=== PATIENT | female | born 1990 | race Caucasian/White ===

== ENCOUNTER 2016-10-24 00:08 | Emergency (ER) | payer SELFPAY ==
[2016-10-24] VITALS (11 sets, daily range): BP systolic 92–118; BP diastolic 51–76; PULSE 92–116; RESP 16–20; TEMP 99.3; O2SAT 96–100
[~2016-10-24] VITALS: Ht 154.9 cm; Wt 56.5 kg
[~2016-10-24 00:08] MED LIST: CLIN1CAP6 PO
[2016-10-24] MEDS ORDERED: MORPHINE SULFATE 4 MG/ML INJ IV PUSH ONE ×4 (00:45→09:30)
[2016-10-24] MEDS ORDERED: SODIUM CHLOR 0.9% 1000 ML INJ 1,000 ML IV ONE (00:45)
[2016-10-24] MEDS ORDERED: ONDANSETRON HCL 4 MG/2 ML VIAL IV PUSH ONE (00:45)
[2016-10-24 01:07] LABS: AUTOMATED NEUTROPHIL # 10.5 TH/MM3 (1.8-7.7); BASOPHIL # 0.1 TH/MM3 (0-0.2); BASOPHIL % 0.7 % (0.0-2.0); EOSINOPHIL % 0.1 % (0.0-4.0); HEMATOCRIT 39.3 % (35.0-46.0); LYMPH % 3.9 % (9.0-44.0); LYMPHOCYTE # 0.5 TH/MM3 (1.0-4.8); MEAN CELL VOLUME 93.2 FL (80.0-100.0); MEAN CORPUSCULAR HGB CONC 34.3 % (32.0-36.0); MONO % 4.4 % (0.0-8.0); NEUT % 90.9 % (16.0-70.0); PLATELET COUNT 265 TH/MM3 (150-450); RED BLOOD COUNT 4.22 MIL/MM3 (4.00-5.30); RED CELL DISTRIBUTION WIDTH 11.1 % (11.6-17.2); WHITE BLOOD COUNT 11.6 TH/MM3 (4.0-11.0)
[2016-10-24 01:20] LABS: HEMO FLAGS DIFF FINAL
[2016-10-24 01:23] LABS: POTASSIUM 3.7 MEQ/L (3.5-5.1)
[2016-10-24 01:26] LABS: BICARBONATE 21.5 MEQ/L (21.0-32.0)
[2016-10-24 03:06] LABS: BLOOD, URINE LARGE (NEG); GLUCOSE,URINE NEG (NEG); NITRITE,URINE NEG (NEG)
[2016-10-24 03:09] LABS: KETONE, URINE 80 OR GREATER mg/dL (NEG)
[2016-10-24 03:20] LABS: URINE COLOR YELLOW (YELLW/STRAW)
[2016-10-24 03:21] LABS: MUCUS URINE MANY /lpf (OCC); SQUAMOUS EPITHELIAL CELL URINE 0-5 /hpf (0-5); WBC, URINE 0-2 /hpf (0-5)
[2016-10-24 03:22] LABS: COMMENT (UR) CULT NOT INDICATED; CULTURE IF INDICATED CULT NOT INDICATED
--- NOTE | 2016-10-24 03:36 | RADHPO ---
EXAM DATE/TIME: 10/24/2016 02:36 [place] COMPARISON: No previous studies available for comparison. INDICATIONS : Bleeding and pain with . LAB(S): Beta-hC MEDICAL HISTORY : . SURGICAL HISTORY : Tympanostomy tubes. ENCOUNTER: Initial ACUITY: 1 day PAIN SCORE: 8/10 LOCATION: Bilateral pelvis MEASUREMENTS: UTERUS: 11.0 x 6.2 x 7.2 cm ENDOMETRIAL STRIPE: >20 mm RIGHT OVARY: 3.4 x 3.1 x 2.6 cm LEFT OVARY: 3.4 x 2.4 x 1.9 cm FREE FLUID: No CROWN RUMP LENGTH: Non visualized. = WKS DAYS FHR: Non visualized. BPM FINDINGS: The endometrial stripe appears thickened and inhomogeneous probably hemorrhage and/or retained produc ts of conception and there is no evidence for intrauterine . There is no free fluid. The adn exa is unremarkable. CONCLUSION: Intrauterine is not identified and findings most likely representing hemorrhage and/or samuel ined products of conception. David Andrew MD on October 24, 2016 at 3:32 Board Certified Radiologist. This report was verified electronically.
--- NOTE | 2016-10-24 04:04 | PD ---
HPI Chief Complaint: Related Problem Time Seen by Provider: 00:41 Travel History International Travel<30 days: No Contact w/Intl Traveler<30days: No Traveled to known affect area: No History of Present Illness HPI 26 year old female presents to the emergency department by private transportation the care of her mother for evaluation of pelvic pain with heavy vaginal bleeding. Patient states that she started noticing some spotting around 9 PM and then 945 past a large amount of blood with what looks like a fetus. She states she saw arms and legs and did not retain the product and flushed the product. Patient's had ongoing bleeding and pain 9/10 in intensity. Patient states last normal period was 3 months ago. Patient has had some intermittent spotting. She was not aware that she was . Patient denies any previous pregnancies. Ab1. Patient denies any previous abdominal surgery. Patient's had no shortness of breath sweats near syncope or syncope. Patient denies any chronic medical conditions or surgeries except myringotomy at age 1. PFSH Past Medical History Narrative Medical Myringotomy; alcohol use prescription Lortab abuse; nursing notes reviewed Medical History: Denies Significant Hx Hx Anticoagulant Therapy: No Cardiovascular Problems: No Cerebrovascular Accident: No Diabetes: No Diminished Hearing: No Respiratory: No Immunizations Current: Yes ?: LMP: 3 MONTHS AGO : 1 Past Surgical History Ear Surgery: Yes (tubes in ears at age 1) Hysterectomy: No Tympanostomy Tube: Yes (AGE 1) Social History Alcohol Use: Yes (OCC) Tobacco Use: No Substance Use: Yes (HISTORY OF LORTAB ADDICTION) Allergies-Medications (Allergen,Severity, Reaction): Coded Allergies: Amoxicillin (Verified Allergy, Severe, Rash, 10/24/16) Reported Meds & Prescriptions Reported Meds & Active Scripts Active No Active Prescriptions or Reported Medications Review of Systems Except as stated in HPI: all other systems reviewed are Neg General / Constitutional: No: Fever, Chills HENT: No: Congestion Cardiovascular: No: Chest Pain or Discomfort Respiratory: No: Shortness of Breath Gastrointestinal: Positive: Abdominal Pain, No: Nausea, Vomiting Genitourinary: Positive: Pelvic Pain, Vaginal Bleeding, No: Decreased Urinary Output Musculoskeletal: No: Myalgias, Arthralgias Skin: No Rash Neurologic: No: Weakness Psychiatric: No: Anxiety Hematologic/Lymphatic: No: Lymph Node Enlargement Physical Exam Narrative GENERAL: Well-developed well-nourished female in no acute distress no respiratory distress appears to be in some discomfort SKIN: Warm and dry. HEAD: Normocephalic. EYES: No scleral icterus. No injection or drainage. NECK: Supple, trachea midline. No JVD or lymphadenopathy. CARDIOVASCULAR: Regular rate and rhythm without murmurs, gallops, or rubs. RESPIRATORY: Breath sounds equal bilaterally. No accessory muscle use. GASTROINTESTINAL: Abdomen soft, mild suprapubic tenderness to palpation without guarding or rebound, nondistended. Pelvic exam: External exam with scant blood no induration no lesions; speculum exam fresh blood in the vaginal vault few clots retained membranes noted at the cervical os no other products noted MUSCULOSKELETAL: No cyanosis, or edema. BACK: Nontender without obvious deformity. No CVA tenderness. Data Data Last Documented VS Vital Signs Date Time Temp Pulse Resp B/P Pulse Ox O2 Delivery O2 Flow Rate FiO2 10/24/16 07:24 97 18 105/73 99 Room Air 10/24/16 04:25 99.3 Orders Beta Hcg (Quant/Titer) (10/24/16 00:41) Complete Blood Count With Diff (10/24/16 00:41) Basic Metabolic Panel (Bmp) (10/24/16 00:41) Complete Rh (10/24/16 00:41) Urinalysis - C+S If Indicated (10/24/16 00:41) Iv Access Insert/Monitor (10/24/16 00:41) Ed Urine Pregnancytest Poc (10/24/16 00:41) Sodium Chlor 0.9% 1000 Ml Inj (Ns 1000 M (10/24/16 00:45) Ondansetron Inj (Zofran Inj) (10/24/16 00:45) Morphine Inj (Morphine Inj) (10/24/16 00:45) Us Pelvis (Ques Pr/Ect)W Trans (10/24/16 ) Morphine Inj (Morphine Inj) (10/24/16 03:30) Morphine Inj (Morphine Inj) (10/24/16 07:30) Labs Laboratory Tests Test 10/24/16 10/24/16 00:50 02:50 White Blood Count 11.6 TH/MM3 Red Blood Count 4.22 MIL/MM3 Hemoglobin 13.5 GM/DL Hematocrit 39.3 % Mean Corpuscular Volume 93.2 FL Mean Corpuscular Hemoglobin 32.0 PG Mean Corpuscular Hemoglobin 34.3 % Concent Red Cell Distribution Width 11.1 % Platelet Count 265 TH/MM3 Mean Platelet Volume 7.1 FL Neutrophils (%) (Auto) 90.9 % Lymphocytes (%) (Auto) 3.9 % Monocytes (%) (Auto) 4.4 % Eosinophils (%) (Auto) 0.1 % Basophils (%) (Auto) 0.7 % Neutrophils # (Auto) 10.5 TH/MM3 Lymphocytes # (Auto) 0.5 TH/MM3 Monocytes # (Auto) 0.5 TH/MM3 Eosinophils # (Auto) 0.0 TH/MM3 Basophils # (Auto) 0.1 TH/MM3 CBC Comment DIFF FINAL Differential Comment Sodium Level 135 MEQ/L Potassium Level 3.7 MEQ/L Chloride Level 103 MEQ/L Carbon Dioxide Level 21.5 MEQ/L Anion Gap 11 MEQ/L Blood Urea Nitrogen 5 MG/DL Creatinine 0.49 MG/DL Estimat Glomerular Filtration 153 ML/MIN Rate Random Glucose 107 MG/DL Calcium Level 8.8 MG/DL Human Chorionic Gonadotropin, [address]117 MIU/ML Quant Blood Type O POSITIVE Rho(D) Type POSITIVE Urine Color YELLOW Urine Turbidity SLIGHT Urine pH 6.0 Urine Specific [place] 1.021 Urine Protein NEG mg/dL Urine Glucose (UA) NEG mg/dL Urine Ketones 80 OR GREATER mg/dL Urine Occult Blood LARGE Urine Nitrite NEG Urine Bilirubin NEG Urine Leukocyte Esterase NEG Urine RBC 25-49 /hpf Urine WBC 0-2 /hpf Urine Squamous Epithelial 0-5 /hpf Cells Urine Amorphous Sediment FEW Urine Mucus MANY /lpf Microscopic Urinalysis Comment CULT NOT INDICATED MDM Medical Decision Making Medical Screen Exam Complete: Yes Emergency Medical Condition: Yes Medical Record Reviewed: Yes Interpretation(s) Last Impressions Pelvis Ultrasound 10/24/16 0000 Signed Impressions: Service Date/Time: Monday, October 24, 2016 02:36 - CONCLUSION: Intrauterine is not identified and findings most likely representing hemorrhage and/or retained products of conception. 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 Call placed to OB ED recommends ongoing observation for another 2 hours and then reassessment if patient continues to have retained products recommends transfer to [facility] emergency department and per Dr. tinsley he patient in the ED EMS here to transport patient Physician Communication Physician Communication discussed with Dr Baker OB ED hospitalist --rec 2 hours of [facility] ED OBS if no pregress will accept for transfer to OB ED; @ 0615 --send to [facility] ED --will see in the ED; discussed with DR Baer --will see in ED [facility] and contact Dr Baker to [facility] ED Diagnosis Primary Impression: Incomplete Additional Impression: Retained products of conception, early Scripts No Active Prescriptions or Reported Meds Nancy Schafer MD Oct 24, 2016 04:04
--- NOTE | 2016-10-24 08:25 | PD ---
Physical Exam Date Seen by Provider: Oct 24, 2016 Time Seen by Provider: 08:22 Narrative The patient is a 26-year-old female who was initially evaluated at [facility] by Dr. Schafer and was noted to have retained products of conception. The patient states her last menstrual cycle was mid July, she occasionally is irregular, and did not know she was when she went to the emergency department last night. The patient was evaluated and noted to be , ultrasound was performed which revealed what appeared to be retained products of conception and/or hemorrhage. The patient states she did pass what appeared to be a fetus at home, however, continued to have lower abdominal pain and cramping with bleeding. The patient was then referred to [facility] to be evaluated by the OB hospitalist. Data Data Last Documented VS Vital Signs Date Time Temp Pulse Resp B/P Pulse Ox O2 Delivery O2 Flow Rate FiO2 10/24/16 08:14 95 20 104/60 98 Room Air 10/24/16 04:25 99.3 Orders Beta Hcg (Quant/Titer) (10/24/16 00:41) Complete Blood Count With Diff (10/24/16 00:41) Basic Metabolic Panel (Bmp) (10/24/16 00:41) Complete Rh (10/24/16 00:41) Urinalysis - C+S If Indicated (10/24/16 00:41) Iv Access Insert/Monitor (10/24/16 00:41) Ed Urine Pregnancytest Poc (10/24/16 00:41) Sodium Chlor 0.9% 1000 Ml Inj (Ns 1000 M (10/24/16 00:45) Ondansetron Inj (Zofran Inj) (10/24/16 00:45) Morphine Inj (Morphine Inj) (10/24/16 00:45) Us Pelvis (Ques Pr/Ect)W Trans (10/24/16 ) Morphine Inj (Morphine Inj) (10/24/16 03:30) Morphine Inj (Morphine Inj) (10/24/16 07:30) Morphine Inj (Morphine Inj) (10/24/16 09:30) Ketorolac Inj (Toradol Inj) (10/24/16 09:30) Labs Laboratory Tests Test 10/24/16 10/24/16 00:50 02:50 White Blood Count 11.6 TH/MM3 Red Blood Count 4.22 MIL/MM3 Hemoglobin 13.5 GM/DL Hematocrit 39.3 % Mean Corpuscular Volume 93.2 FL Mean Corpuscular Hemoglobin 32.0 PG Mean Corpuscular Hemoglobin 34.3 % Concent Red Cell Distribution Width 11.1 % Platelet Count 265 TH/MM3 Mean Platelet Volume 7.1 FL Neutrophils (%) (Auto) 90.9 % Lymphocytes (%) (Auto) 3.9 % Monocytes (%) (Auto) 4.4 % Eosinophils (%) (Auto) 0.1 % Basophils (%) (Auto) 0.7 % Neutrophils # (Auto) 10.5 TH/MM3 Lymphocytes # (Auto) 0.5 TH/MM3 Monocytes # (Auto) 0.5 TH/MM3 Eosinophils # (Auto) 0.0 TH/MM3 Basophils # (Auto) 0.1 TH/MM3 CBC Comment DIFF FINAL Differential Comment Sodium Level 135 MEQ/L Potassium Level 3.7 MEQ/L Chloride Level 103 MEQ/L Carbon Dioxide Level 21.5 MEQ/L Anion Gap 11 MEQ/L Blood Urea Nitrogen 5 MG/DL Creatinine 0.49 MG/DL Estimat Glomerular Filtration 153 ML/MIN Rate Random Glucose 107 MG/DL Calcium Level 8.8 MG/DL Human Chorionic Gonadotropin, 53546 MIU/ML Quant Blood Type O POSITIVE Rho(D) Type POSITIVE Urine Color YELLOW Urine Turbidity SLIGHT Urine pH 6.0 Urine Specific [place] 1.021 Urine Protein NEG mg/dL Urine Glucose (UA) NEG mg/dL Urine Ketones 80 OR GREATER mg/dL Urine Occult Blood LARGE Urine Nitrite NEG Urine Bilirubin NEG Urine Leukocyte Esterase NEG Urine RBC 25-49 /hpf Urine WBC 0-2 /hpf Urine Squamous Epithelial 0-5 /hpf Cells Urine Amorphous Sediment FEW Urine Mucus MANY /lpf Microscopic Urinalysis Comment CULT NOT INDICATED [facility] Medical Record Reviewed: Yes Supervised Visit with GEORGINA: No Interpretation(s) Last Impressions Pelvis Ultrasound 10/24/16 0000 Signed Impressions: Service Date/Time: Monday, October 24, 2016 02:36 - CONCLUSION: Intrauterine is not identified and findings most likely representing hemorrhage and/or retained products of conception. David Andrew MD Laboratory Tests Test 10/24/16 10/24/16 00:50 02:50 White Blood Count 11.6 TH/MM3 Red Blood Count 4.22 MIL/MM3 Hemoglobin 13.5 GM/DL Hematocrit 39.3 % Mean Corpuscular Volume 93.2 FL Mean Corpuscular Hemoglobin 32.0 PG Mean Corpuscular Hemoglobin 34.3 % Concent Red Cell Distribution Width 11.1 % Platelet Count 265 TH/MM3 Mean Platelet Volume 7.1 FL Neutrophils (%) (Auto) 90.9 % Lymphocytes (%) (Auto) 3.9 % Monocytes (%) (Auto) 4.4 % Eosinophils (%) (Auto) 0.1 % Basophils (%) (Auto) 0.7 % Neutrophils # (Auto) 10.5 TH/MM3 Lymphocytes # (Auto) 0.5 TH/MM3 Monocytes # (Auto) 0.5 TH/MM3 Eosinophils # (Auto) 0.0 TH/MM3 Basophils # (Auto) 0.1 TH/MM3 CBC Comment DIFF FINAL Differential Comment Sodium Level 135 MEQ/L Potassium Level 3.7 MEQ/L Chloride Level 103 MEQ/L Carbon Dioxide Level 21.5 MEQ/L Anion Gap 11 MEQ/L Blood Urea Nitrogen 5 MG/DL Creatinine 0.49 MG/DL Estimat Glomerular Filtration 153 ML/MIN Rate Random Glucose 107 MG/DL Calcium Level 8.8 MG/DL Human Chorionic Gonadotropin, 01367 MIU/ML Quant Blood Type O POSITIVE Rho(D) Type POSITIVE Urine Color YELLOW Urine Turbidity SLIGHT Urine pH 6.0 Urine Specific [place] 1.021 Urine Protein NEG mg/dL Urine Glucose (UA) NEG mg/dL Urine Ketones 80 OR GREATER mg/dL Urine Occult Blood LARGE Urine Nitrite NEG Urine Bilirubin NEG Urine Leukocyte Esterase NEG Urine RBC 25-49 /hpf Urine WBC 0-2 /hpf Urine Squamous Epithelial 0-5 /hpf Cells Urine Amorphous Sediment FEW Urine Mucus MANY /lpf Microscopic Urinalysis Comment CULT NOT INDICATED Differential Diagnosis Differential diagnosis includes incomplete AB, complete AB, retained products of conception, hemorrhage. Narrative Course The patient is a 26-year-old female who presents to the emergency department as a transfer from [facility] to be evaluated by the OB hospitalist for possible retained products of conception. The patient's blood type is O+, therefore, no indication for RhoGAM. The patient was reevaluated at 8:20 AM upon arrival, her pain and cramping at significantly improved, her bleeding had also slowed. A call was placed to the OB hospitalist and I spoke with Dr. Baker at 8:24 AM who will evaluate the patient in the emergency department. The patient was evaluated by Dr. Baker in the emergency department who performed a pelvic examination and sent products of conception to lab. They will discharge the patient home on antibiotics and Cytotec. I will prescribe ibuprofen and [place] as needed for pain. The patient will follow-up as an outpatient according to the OB hospitalist. The patient is stable for discharge. Diagnosis Primary Impression: Incomplete Additional Impression: Retained products of conception, early Patient Instructions: General Instructions Additional Instruction: Medications as directed. Follow-up with your physician or the residents on an outpatient basis. Return if symptoms worsen or progress. Med/Other Pt SpecificInfo: Prescription(s) given Scripts Hydrocodone-Acetaminophen ([place])5-325 mg Tab1 Tab PO Q6H PRN (PAIN) #12 TAB Ref 0 Prov:Kieran Sawant MD 10/24/16 Ibuprofen 600 Mg [id number] Mg PO Q6H PRN (Pain/Inflammation) #20 TAB Ref 0 Prov:Kieran Sawant MD 10/24/16 Doxycycline Hyclate 100 Mg [id number] Mg PO BID #14 CAP Ref 0 Prov:Yana Loo MD R2 10/24/16 Misoprostol (Cytotec)100 Mcg [id number] Mcg PO QID #8 TAB Ref 0 Prov:Yana Loo MD R2 10/24/16 Disposition: 01 DISCHARGE HOME Condition: Stable Kieran Sawant MD Oct 24, 2016 08:25
[2016-10-24] MEDS ORDERED: CYTO100T PO (09:19)
[2016-10-24] MEDS ORDERED: DOXY100C PO (09:19)
[2016-10-24] MEDS ORDERED: IBUP-232 PO (09:25)
[2016-10-24] MEDS ORDERED: NORC5TAB PO (09:25)
[2016-10-24] MEDS ORDERED: KETOROLAC TROMETHAMINE 30 MG/ML (IVP) VIAL IV PUSH ONE (09:30)
--- NOTE | 2016-10-24 09:30 | PD.CONS ---
HPI Chief Complaint Vaginal bleeding Date Seen: Oct 24, 2016 Travel History International Travel<30 Days: No Contact w/Intl Traveler<30Days: No Known Affected Area: No History of Present Illness HPI Patient is a 26-year-old who presented to the emergency department for vaginal bleeding last night. She was found to have an open cervical os with retained products of conception. Ultrasound was significant for retained products of conception and/or hemorrhage. Patient is unsure of her LMP. She was unaware that she was until she passed what appeared to be parts. History Past Medical History Medical History: Denies Significant Hx Obstetric History Obstetric History Past Surgical History Surgical History: No Previous Surgery Family History Family History: Negative Social History Alcohol Use: Yes (occasional) Tobacco Use: No Substance Abuse: No (history of lortab abuse) Allergies-Medications (Allergen,Severity, Reaction): Coded Allergies: Amoxicillin (Verified Allergy, Severe, Rash, 10/24/16) Home Meds Active Scripts Doxycycline Hyclate 100 Mg [id number] Mg PO BID #14 CAP Ref 0 Prov:Yana Loo MD R2 10/24/16 Misoprostol (Cytotec)100 Mcg [id number] Mcg PO QID #8 TAB Ref 0 Prov:Yana Loo MD R2 10/24/16 Discontinued Scripts Clindamycin Hcl (Clindamycin Hcl)300 Mg [id number] Mg PO Q6HR 7 Days Prov:Yanna Solares MD 02/19/16 Review of Systems Except as stated in HPI: all other systems reviewed are Neg General / Constitutional: No: Fever, Chills Eyes: No: Visual changes HENT: No: Headaches Cardiovascular: No: Chest Pain or Discomfort Respiratory: No: Short of Breath Gastrointestinal: Abdominal Pain Genitourinary: Pelvic Pain, Discharge, Vaginal Bleeding Musculoskeletal: No: Edema Physical Exam Vital Signs Date Time Temp Pulse Resp B/P Pulse Ox O2 Delivery O2 Flow Rate FiO2 10/24/16 08:14 95 20 104/60 98 Room Air 10/24/16 07:24 97 18 105/73 99 Room Air 10/24/16 06:10 100 16 111/67 100 Room Air 10/24/16 05:40 92 16 107/62 97 Room Air 10/24/16 05:10 94 16 92/51 97 Room Air 10/24/16 04:25 99.3 10/24/16 04:00 98 16 10/24/16 03:55 16 10/24/16 03:40 100 16 115/70 98 Room Air 10/24/16 02:40 94 16 112/65 97 Room Air 10/24/16 01:40 107 16 112/76 96 Room Air 10/24/16 01:25 16 10/24/16 01:10 103 16 115/76 100 Room Air 10/24/16 00:46 102 18 10/24/16 00:14 99.3 116 16 118/71 98 Narrative GENERAL: Well-nourished, well-developed patient. SKIN: Warm and dry. HEAD: Normocephalic and atraumatic. EYES: No scleral icterus. No injection or drainage. ENT: No nasal drainage noted. Mucous membranes pink. Airway patent. NECK: Supple, trachea midline. No JVD. CARDIOVASCULAR: Regular rate and rhythm without murmurs, gallops, or rubs. RESPIRATORY: Breath sounds equal bilaterally. No accessory muscle use. ABDOMEN/GI: Abdomen soft, mildly diffusely tender to palpation, no rebound, no guarding GENITOURINARY: Pelvic Exam: Cervix appears about 1cm dilated with clots and products of conception at external cervical os. EXTREMITIES: No cyanosis or edema. BACK: Nontender without obvious deformity. No CVA tenderness. NEUROLOGICAL: Awake and alert. Motor and sensory grossly within normal limits. Normal speech. Data Data Vital Signs Reviewed: Yes Orders Beta Hcg (Quant/Titer) (10/24/16 00:41) Complete Blood Count With Diff (10/24/16 00:41) Basic Metabolic Panel (Bmp) (10/24/16 00:41) Complete Rh (10/24/16 00:41) Urinalysis - C+S If Indicated (10/24/16 00:41) Iv Access Insert/Monitor (10/24/16 00:41) Ed Urine Pregnancytest Poc (10/24/16 00:41) Sodium Chlor 0.9% 1000 Ml Inj (Ns 1000 M (10/24/16 00:45) Ondansetron Inj (Zofran Inj) (10/24/16 00:45) Morphine Inj (Morphine Inj) (10/24/16 00:45) Us Pelvis (Ques Pr/Ect)W Trans (10/24/16 ) Morphine Inj (Morphine Inj) (10/24/16 03:30) Morphine Inj (Morphine Inj) (10/24/16 07:30) Labs Laboratory Tests Test 10/24/16 10/24/16 00:50 02:50 White Blood Count 11.6 Red Blood Count 4.22 Hemoglobin 13.5 Hematocrit 39.3 Mean Corpuscular Volume 93.2 Mean Corpuscular Hemoglobin 32.0 Mean Corpuscular Hemoglobin 34.3 Concent Red Cell Distribution Width 11.1 Platelet Count 265 Mean Platelet Volume 7.1 Neutrophils (%) (Auto) 90.9 Lymphocytes (%) (Auto) 3.9 Monocytes (%) (Auto) 4.4 Eosinophils (%) (Auto) 0.1 Basophils (%) (Auto) 0.7 Neutrophils # (Auto) 10.5 Lymphocytes # (Auto) 0.5 Monocytes # (Auto) 0.5 Eosinophils # (Auto) 0.0 Basophils # (Auto) 0.1 CBC Comment DIFF FINAL Differential Comment Sodium Level 135 Potassium Level 3.7 Chloride Level 103 Carbon Dioxide Level 21.5 Anion Gap 11 Blood Urea Nitrogen 5 Creatinine 0.49 Estimat Glomerular Filtration 153 Rate Random Glucose 107 Calcium Level 8.8 Human Chorionic Gonadotropin, 58021 Quant Blood Type O POSITIVE Rho(D) Type POSITIVE Urine Color YELLOW Urine Turbidity SLIGHT Urine pH 6.0 Urine Specific [place] 1.021 Urine Protein NEG Urine Glucose (UA) NEG Urine Ketones 80 OR GREATER Urine Occult Blood LARGE Urine Nitrite NEG Urine Bilirubin NEG Urine Leukocyte Esterase NEG Urine RBC 25-49 Urine WBC 0-2 Urine Squamous Epithelial 0-5 Cells Urine Amorphous Sediment FEW Urine Mucus MANY Microscopic Urinalysis Comment CULT NOT INDICATED MDM Medical Record Reviewed: Yes Plan 26 year old who presented with spontaneous . Procedure: Visible products of conception manually removed with ring forceps at bedside. Minimal bleeding. Plan: Observe patient for one hour for bleeding. If bleeding is minimal, will discharge home with doxycycline 100mg PO BID x 7 days and Cytotec 100mcg PO QID x 48 hours. Patient will follow-up as outpatient to ensure complete evacuation of products of conception. sdw Dr. Baker and Dr. David Smith R1 Condition: Stable Scripts Doxycycline Hyclate 100 Mg [id number] Mg PO BID #14 CAP Ref 0 Prov:Yana Loo MD R2 10/24/16 Misoprostol (Cytotec)100 Mcg [id number] Mcg PO QID #8 TAB Ref 0 Prov:Yana Loo MD R2 10/24/16 Yana Loo MD R2 Oct 24, 2016 09:30
== END 2016-10-24 13:39 | disposition home or self-care (01) ==
LOC: PHED 00:08 → NEPE 13:39
DX: O03.4 Incomplete spontaneous abortion without complication (principal)
CPT/HCPCS: 59812; 76700; 76817; 80048; 81001; 84702; 84703; 85025; 86901; 88305; J1885; J2270; J2405; J7030; 96361; 96374; 96375; 96376; 99281